=== PATIENT | male | born 1950 | race Two or more races ===

== ENCOUNTER 2024-11-20 16:48 | Emergency (ER) | payer MEDICARE, BC ==
[~2024-11-20] VITALS: Ht 170.2 cm; Wt 56.7 kg
[2024-11-20 18:06] VITALS: BP 103/51; TEMP 98.3; O2SAT 96
== END 2024-11-20 18:14 | disposition home or self-care (01) ==
LOC: ER 16:58
DX: Z04.3 Encounter for examination and observation following other accident (principal); I10 Essential (primary) hypertension; E11.9 Type 2 diabetes mellitus without complications; E03.9 Hypothyroidism, unspecified; Z88.8 Allergy status to other drugs, medicaments and biological substances; Z95.1 Presence of aortocoronary bypass graft; W18.2XXA Fall in (into) shower or empty bathtub, initial encounter; Y93.E1 Activity, personal bathing and showering; Y92.091 Bathroom in other non-institutional residence as the place of occurrence of the external cause; Y99.8 Other external cause status
CPT/HCPCS: 82962-TC